=== PATIENT | female | born 2000 | race Caucasian/White ===

== ENCOUNTER 2018-08-26 12:47 | Outpatient (CLI) | payer BC ==
--- NOTE | 2018-08-26 14:52 | RAD ---
CHEST 2 VIEWS: HISTORY: Bronchitis. Cough. FINDINGS: Cardiac silhouette and pulmonary vasculature are unremarkable. Coronally oriented wedge-shaped paren chymal opacity at the right anterior lung base has the appearance of subsegmental atelectasis within the anterior basilar segment right lower lobe. No air bronchograms visible. No pleural fluid or pne umothorax. IMPRESSION: Focal atelectasis anterior basilar segment right lower lobe, possibly related to an obstructive proce ss or reactive airways disease. No active cardiopulmonary abnormalities are otherwise demonstrated. POS: [facility]
== END 2018-08-26 12:48 | disposition home or self-care (01) ==
LOC: BICRAD 12:47
PROVIDERS: ATTEND Family Medicine
DX: J20.9 Acute bronchitis, unspecified (principal); J98.11 Atelectasis
CPT/HCPCS: 36415; 71046; 80053; 85025